=== PATIENT | female | born 1945 | race Caucasian/White ===

== ENCOUNTER → 2017-09-14 | Outpatient (CLI) | payer MEDICARE ==
--- NOTE | 2017-09-14 14:40 | KCIC ---
Indication: Low back pain. Time of exam 1:19 PM Curvature is normal. There is central compression deformity involving the L2 vertebral body, age indeterminate. No retropulsion is seen. Remaining lumbar vertebrae demonstrate normal stature. There is generalized degenerative disc disease with variable disc space narrowing and marginal spurring. The aorta is heavily calcified. IMPRESSION: Age indeterminate central superior endplate compression of L2 vertebral body. MRI could be performed to evaluate acuity. Electronically signed by: Guru Cody MD (09/14/2017 2:37 PM) [id number]
== END | disposition home or self-care (01) ==
LOC: KCIC 12:56
DX: M51.36 Other intervertebral disc degeneration, lumbar region (principal)
CPT/HCPCS: 72100